=== PATIENT | male | born 1995 | race Caucasian/White ===

== ENCOUNTER 2019-12-14 20:21 | Emergency (ER) | payer BC ==
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
== END 2019-12-14 21:23 | disposition home or self-care (01) ==
LOC: FB.ED 20:21
DX: S02.2XXA Fracture of nasal bones, initial encounter for closed fracture (principal); R04.0 Epistaxis; W50.0XXA Accidental hit or strike by another person, initial encounter
CPT/HCPCS: 99283